=== PATIENT | female | born 1975 | race Caucasian/White ===

== ENCOUNTER → 2020-02-29 11:39 | Outpatient (BNVA) | payer SELFPAY | PROVIDERS: Family Provider Family Medicine; Visit Provider Orthopaedic Surgery | DX: M54.9 Dorsalgia, unspecified (principal) | CPT/HCPCS: 72114 ==

== ENCOUNTER 2021-01-05 11:23 | Outpatient (CLI) | payer OTHER, SELFPAY ==
[2021-01-05 12:27] LABS: Alanine Aminotransferase 11 U/L (0-33); Albumin Level 4.2 g/dL (3.5-5.2); Alkaline Phosphatase 56 IU/L (35-105); Aspartate Amino Transferase 19 U/L (0-32); Blood Urea Nitrogen 15 mg/dL (6-20); Calcium 9.2 mg/dL (8.5-10.5); Carbon Dioxide 27 mmol/L (22-29); Chloride 102 mmol/L (98-107); Globulin 2.7 g/dL (1.3-4.6); Glomerular Filtration Rate 109.1 mL/min (90-130); Glucose 89 mg/dL (65-115); Osmolality Calculated 286 mOsm/kg (285-295); Sodium 138 mmol/L (136-145); Total Bilirubin 0.3 mg/dL (0.15-1.2); Total Protein 6.9 g/dL (6.6-8.7)
== END 2021-01-05 11:24 | disposition home or self-care (01) ==
PROVIDERS: Visit Provider Nurse Practitioner Family
DX: Z79.899 Other long term (current) drug therapy (principal); L70.0 Acne vulgaris
CPT/HCPCS: 36415; 80053

== ENCOUNTER 2021-12-03 08:28 | Outpatient (CLI) | payer OTHER, SELFPAY ==
--- NOTE | 2021-12-03 08:50 | MM_ITS ---
WS: [id number] BILATERAL SCREENING DIGITAL BREAST MAMMOGRAPHY WITH PRATIK DISPLACEMENT VIEWS. CAD PERFORMED. HISTORY: SCREENING COMPARISON: None available. Bilateral craniocaudal and mediolateral oblique views are performed with tomosynthesis and SM. Pratik displacement views in CC and MLO projection also performed. Breasts composition: There are scattered areas of fibroglandular density. Vertebral implants appear intact. No suspicious masses or calcifications. MM/[place] [id number] IMPRESSION: BI-RADS: 2-Benign FOLLOW-UP: 1 Year Follow-up
== END 2021-12-03 08:29 | disposition home or self-care (01) ==
LOC: RAD 08:29
PROVIDERS: PCP Family Medicine; Visit Provider Family Medicine
DX: Z12.31 Encounter for screening mammogram for malignant neoplasm of breast (principal)
CPT/HCPCS: 77063; 77067

== ENCOUNTER → 2021-12-13 13:09 | Outpatient (BNVA) | payer OTHER, SELFPAY | PROVIDERS: PCP Family Medicine; Visit Provider Family Medicine | DX: Z00.00 Encounter for general adult medical examination without abnormal findings (principal); R53.83 Other fatigue | CPT/HCPCS: 80053; 80061; 82607; 84443; 85025 ==

== ENCOUNTER → 2024-04-29 09:55 | Outpatient (BNVA) | payer OTHER, SELFPAY | PROVIDERS: PCP Family Medicine; Visit Provider Student in an Organized Health Care Education/Training Program | DX: M25.511 Pain in right shoulder (principal); M25.811 Other specified joint disorders, right shoulder; M75.41 Impingement syndrome of right shoulder; S49.91XA Unspecified injury of right shoulder and upper arm, initial encounter; X58.XXXA Exposure to other specified factors, initial encounter; Y93.B2 Activity, push-ups, pull-ups, sit-ups | CPT/HCPCS: 73030 ==

== ENCOUNTER 2024-05-11 15:04 | Outpatient (CLI) | payer OTHER, SELFPAY ==
--- NOTE | 2024-05-11 15:15 | MR_ITS ---
WS: [id number] MRI RIGHT SHOULDER NONCONTRAST TECHNIQUE: Sagittal T2, coronal T1, T2 and proton density imaging. Axial gradient PDE imaging. CLINICAL INFORMATION: right shoulder injury/rule out rotator cuff tear COMPARISON: None. 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 Mild downsloping acromion with subacromial spurring. Subacromial subdeltoid fluid. Degenerative edema involving the distal clavicle and acromion. High-grade complete rotator cuff tear involving the supraspinatus with tendon retraction to the level of the glenohumeral joint. Retraction measures approximately 1.6 cm. Interstitial bursal surface tear infraspinatus. Normal teres minor. Subscapularis is normal in appearance. Normal biceps tendon in the bicipital groove. Intra-articular biceps tendon appears intact. Biceps labral anchor appears intact. Glenoid labrum appears grossly normal. Subscapularis appears intact. MR/MR shoulder RT wo con* [id number] IMPRESSION: 1. Moderate degenerative changes AC joint with fluid and edema. Mild downslopi ng of the acromion with subacromial spurring. 2. High-grade complete tear of the supraspinatus with 1.6 cm of tendon retract ion to the glenohumeral joint. 3. Interstitial bursal surface tear infraspinatus. 4. Rotator cuff is otherwise intact. 5. No other acute findings.
== END 2024-05-11 15:05 | disposition home or self-care (01) ==
PROVIDERS: PCP Family Medicine; Visit Provider Student in an Organized Health Care Education/Training Program
DX: M75.121 Complete rotator cuff tear or rupture of right shoulder, not specified as traumatic (principal); M25.811 Other specified joint disorders, right shoulder; M75.41 Impingement syndrome of right shoulder; R93.6 Abnormal findings on diagnostic imaging of limbs
CPT/HCPCS: 73221

== ENCOUNTER 2024-09-06 08:39 | Outpatient (CLI) | payer OTHER, SELFPAY ==
--- NOTE | 2024-09-06 08:41 | MM_ITS ---
WS: [id number] BILATERAL SCREENING DIGITAL BREAST MAMMOGRAPHY WITH PRATIK DISPLACEMENT VIEWS. CAD PERFORMED. HISTORY: SCREENING COMPARISON: 12/03/2021 Bilateral craniocaudal and mediolateral oblique views are performed with tomosynthesis and SM. Pratik displacement views in CC and MLO projection also performed. Breasts composition: There are scattered areas of fibroglandular density. Implants are intact. No capsular contraction. No suspicious masses or grouping of calcifications. No nipple retraction. MM/MM scr BI tomosynthesis [id number] IMPRESSION: BI-RADS: 2 - Benign. FOLLOW-UP: 1 Year Follow-up
== END 2024-09-06 08:40 | disposition home or self-care (01) ==
PROVIDERS: PCP Family Medicine; Visit Provider Family Medicine
DX: Z12.31 Encounter for screening mammogram for malignant neoplasm of breast (principal); R92.323 Mammographic fibroglandular density, bilateral breasts; Z98.82 Breast implant status
CPT/HCPCS: 77063; 77067